=== PATIENT | female | born 1950 | race Caucasian/White ===

== ENCOUNTER 2022-01-28 17:49 | Observation (INO) | payer OTHER ==
--- OUTSIDE RECORDS SUMMARY | 2022-01-28 17:52 | XMS REPORT | Continuity of Care Document ---
:1950 Author Organization [facility] t Address [address] [place] [address] Care Team Providers Name Role Phone Guillaume Powell Attending Clinician Unavailable Guillaume Powell Admitting Clinician Unavailable UNDEFINED Admitting Clinician Unavailable Payers Payer Name Policy Type Policy Number Effective Date Expiration Date S ource Problems This patient has no known problems. Allergies, Adverse Reactions, Alerts Allergy Allergy Status Severity Reaction(s) Onset Inactive Treating Comm ents Source Name Type Date Date Clinician No Known DA Active U 2020-04 [facility] [place] [facility] No Known DA Active U 2020-04 [facility] [place] [facility] 00:[facility] No Known DA Active U [facility] 12-02 [place] [facility] 00:00: [facility] [address] [place] [address] No Known DA Active U [facility]02 [place] [facility] Medications This patient has no known medications. Procedures Procedure Date / Time Performed Performing Clinician [facility] e [id number] 2021-01-10 00:00:00 BURRO [facility] [id number] 2021-01-10 00:00:00 JAIRON [facility] Encounters Start End Encounter Admission Attending Care Care Encounter Source Date/Time Date/Time Type Type Clinicians Facility Department ID 2021-01-10 2021-01-11 Inpatient MICKEY Allen SURG [id number] 05 [facility] 05:27:00 12:03:00 Guillaume [facility] 2020-12-21 2020-12-21 Outpatient CHRISTINE Powell LABO [id number] [facility] 18:33:00 18:33:00 Guillaume 89 [facility] 2020-12-21 2020-12-21 Outpatient MICKEY Allen 3DAY [id number] [facility] 09:00:00 09:00:00 Guillaume 87 [facility] Results Test Description Test Time Test Comments Results Result Comments Source BASIC METABOLIC PANEL 2021-01-11 06:52:00 Test Item Value Reference Range Interpretation Comme nts SODIUM (test code = NA) 141 mmol/L 136-145 N POTASSIUM (test code = K) 4.4 mmol/L 3.5-5.1 N CHLORIDE (test code = CL) 105.0 mmol/L 98-107 N CARBON DIOXIDE (test code = 27.1 mmol/L 21-32 N CO2) GLUCOSE (test code = GLU) 93 mg/dL 70-110 N BLOOD UREA NITROGEN (test code 17 mg/dL 7-18 N = BUN) GLOMERULAR FILTRATION RATE 55.9 >60 U nit of measure: mL/min/1.73 (test code = GFR) [id number] Range:Healthy Adults >90 mL/m in/1.73 m2 For Chronic Kidney Disease: Stage II Mild D ecrease in GFR 60-90 Stage III Moderate Decrease in GFR 30-59 Stage IV Severe Decre ase in GFR 15-29 Stage V K idney Failure <15 CREATININE (test code = CREAT) 0.98 mg/dL 0.55-1.30 N CALCIUM (test code = CA) 9.0 mg/dL 8.2-10.1 N HGB [id number] 06:08:00 Test Item Value Reference Range Interpretation Comments HEMOGLOBIN (test code = HGB) 12.1 g/dL 12-16 N HEMATOCRIT (test code = HCT) 36.3 % 37-47 L SPECIMEN COMMENT: POD #1- XR KNEE 1 OR 2 V [id number] 12:11:00 [facility] 1950 Sex: F Patient Name: ANIKET YOU Unit No: [id number] EXAMS: CPT CODE: [id number] XR KNEE 1 OR 2 [place] [id number] IMAGES PROVIDED: 2 FINDINGS: Postoperative changes from right total knee arthoplasty demonstrated without evidence of immediate complication. No acute fracture is visualized. IMPRESSION: Postoperative exam as above. at 1211 Reported and signed by: Rod Salcedo M.D. CC: Guillaume Powell MD Technologist: MARYAM SIMPSON RT(R) Transcribed D/ (1211) [facility]: [facility] [address] [facility] PHYS: Guillaume Carpio MD : 1950 AGE: 70 SEX: F [place], [place] [address] LOC: [id number] A PHONE #: [phone] EXAM DATE: 01/10/2021 STATUS: ADM IN FAX #: [phone] RAD #: D/C DT PAGE 1 Signed Report Patient Name: ANIKET YOU Unit No: [id number] EXAMS: CPT CODE: [id number] XR KNEE 1 OR 2 V RT [id number] (Continued) Orig Print D/T: S: 01/11/2021 (0849)[facility] NAME: ANIKET YOU [address] [facility] PHYS: Guillaume Carpio MD : 1950 AGE: 70 SEX: F [place], [place] [address] LOC: [id number] PHONE #: [phone] EXAM DATE: 01/10/2021 STATUS: ADM IN FAX #: [phone] RAD #: D/C DT PAGE 2 Signed ReportCOMPREHENSIVE METABOLIC [id number] 13:18:00 Test Item Value Reference Range Interpretation Comments SODIUM (test code = 141 mmol/L 136-145 N NA) POTASSIUM (test code = 4.7 mmol/L 3.5-5.1 N K) CHLORIDE (test code = 105.0 mmol/L 98-107 N CL) CARBON DIOXIDE (test 27.9 mmol/L 21-32 N code = CO2) GLUCOSE (test code = 80 mg/dL 70-110 N GLU) BLOOD UREA NITROGEN 15 mg/dL 7-18 N (test code = BUN) GLOMERULAR FILTRATION 52.2 >60 Unit o f measure: RATE (test code = GFR) mL/mi n/1.73 [id number] Range:Healthy Adults >90 mL/min/1.73 m2 For Chronic Kidney Disease: Stage II Mild Decrease i n GFR 60-90 Stage III Moderate Decrea se in GFR 30-59 St age IV Severe Decre ase in GFR 15-29 St age V Kidney Failur e <15 CREATININE (test code 1.04 mg/dL 0.55-1.30 N = CREAT) TOTAL PROTEIN (test 6.8 g/dL 6.4-8.2 N code = PROT) ALBUMIN (test code = 3.8 g/dL 3.4-5.0 N ALB) GLOBULIN (test code = 3.0 g/dL 2.2-4.2 N GLOB) ALBUMIN/GLOBULIN RATIO 1.3 0.7-2.0 N (test code = A/G) CALCIUM (test code = 9.3 mg/dL 8.2-10.1 N CA) BILIRUBIN TOTAL (test 0.30 mg/dL 0.2-1.00 N code = BILT) SGOT/AST (test code = 14.0 U/L 15-37 L AST) SGPT/ALT (test code = 34.0 U/L 12-78 N Please note new ALT) normal range. ALKALINE PHOSPHATASE 67 U/L 46-116 N TOTAL (test code = ALKP) CBC W/AUTO [id number] 12:34:00 Test Item Value Reference Range Interpretation Comments WHITE BLOOD CELL (test code = WBC) 5.7 K/mm3 5.8-11.0 L RED BLOOD CELL (test code = RBC) 4.65 M/mm3 4.2-5.4 N HEMOGLOBIN (test code = HGB) 14.5 g/dL 12-16 N HEMATOCRIT (test code = HCT) 43.1 % 37-47 N MEAN CELL VOLUME (test code = MCV) 93 fL 80-98 N MEAN CELL HGB (test code = MCH) 31.2 pg 27-34 N MEAN CELL HGB CONCENTRATION (test 33.6 g/dL 30.8-34.1 N code = MCHC) RED CELL DISTRIBUTION WIDTH (test 13.3 % 11-16 N code = RDW) PLT (test code = PLT) 347 K/mm3 130-400 N MEAN PLATELET VOLUME (test code = 9.8 fL 8.9-12.1 N MPV) NEUTROPHIL % (test code = NT%) 45.5 % 45-70 N LYMPHOCYTE % (test code = LY%) 42.3 % 20-40 H MONOCYTE % (test code = MO%) 8.6 % 3-10 N EOSINOPHIL % (test code = EO%) 2.3 % 1-5 N BASOPHIL % (test code = BA%) 1.0 % 0.0-1.1 N NEUTROPHIL # (test code = NT#) 2.60 K/mm3 2.00-7.50 N LYMPHOCYTE # (test code = LY#) 2.42 K/mm3 1.50-4.00 N MONOCYTE # (test code = MO#) 0.49 K/mm3 0.2-0.8 N EOSINOPHIL # (test code = EO#) 0.13 K/mm3 0.04-0.4 N BASOPHIL # (test code = BA#) 0.06 K/mm3 0.02-0.10 N MANUAL DIFF REQUIRED (test code = NO MANUAL DIFF MDIFF) NUCLEATED RED BLOOD CELL (test 0 % 0-0 N code = NRBC)
[2022-01-28 20:48] LABS: Absolute Lymphocytes (CBC) 0.8 K/uL (0.7-4.9); MCV 95.5 fL (80-100); MPV 7.9 fL (7.6-11.3)
[2022-01-28 21:11] LABS: Albumin 3.6 g/dL (3.4-5.0); Bilirubin Total 0.5 mg/dL (0.2-1.0); Potassium 3.8 mmol/L (3.5-5.1); Protein, Total 7.2 g/dL (6.4-8.2)
[2022-01-28 21:26] LABS: Urine Blood Trace-intact (Negative); Urine Glucose Negative (Negative); Urine Protein Negative (Negative); Urine Specific Gravity 1.025 (1.005-1.030); Urine pH 5.5 (5.0-7.0)
[2022-01-28 21:42] LABS: Urine Bacteria <20 /HPF (<20); Urine Mucus Slight /HPF (None Seen); Urine RBC <5 /HPF (None Seen)
[2022-01-28] MEDS ORDERED: LACTULOSE 20 GM/30 ML UCUP ONE (23:59)
[2022-01-28] MEDS ORDERED: BISACODYL 10 MG RECTAL SUPP ONE (23:59)
[2022-01-29] MEDS ORDERED: MINERAL OIL ENEMA 135 ML BTL PR ONE (01:59)
--- NOTE | 2022-01-29 02:08 | EDPHYS ---
Physician Documentation [facility] Name: Kellen Johnson Age: 71 yrs Sex: Female : 1950 Arrival Date: 01/28/2022 Time: 17:52 Bed 4 Private MD: Reema Hinojosa C ED Physician Randy Mireles HPI: 01/28 19:55 This 71 yrs old Female presents to ER via Ambulatory with complaints of Constipation, cp Urinary Retention. 19:55 The patient presents to the emergency department with pain in the rectal area. cp 19:55 Associate signs and symptoms: Pertinent positives: constipation, urine retention, last cp BM 4-5 days ago, Pertinent negatives: abdominal pain, diarrhea, fever, lower GI bleeding. Historical: - Allergies: 18:04 No Known Allergies; ll1 - PMHx: 18:04 None; ll1 - PSHx: 18:04 R ankle ORIF; R total knee; banding hemmhroids; ll1 - Immunization history:: Client reports receiving the 2nd dose of the Covid vaccine. - Social history:: Smoking status: Patient denies any tobacco usage or history of. ROS: 20:00 Constitutional: Negative for body aches, chills, fever, poor PO intake. cp 20:00 Eyes: Negative for injury, pain, redness, and discharge. cp 20:00 ENT: Negative for drainage from ear(s), ear pain, sore throat, difficulty swallowing, difficulty handling secretions. 20:00 Cardiovascular: Negative for chest pain. 20:00 Respiratory: Negative for cough, shortness of breath, wheezing. 20:00 Abdomen/GI: Positive for constipation, rectal pain, Negative for abdominal pain, nausea, vomiting, and diarrhea. 20:00 Back: Negative for pain at rest, pain with movement. 20:00 : Positive for difficulty urinating. 20:00 Neuro: Negative for altered mental status, dizziness, headache, weakness. 20:00 All other systems are negative. Exam: 20:05 Constitutional: The patient appears in no acute distress, alert, awake, cp non-diaphoretic, non-toxic, well developed, well nourished, uncomfortable. 20:05 Head/Face: Normocephalic, atraumatic. cp 20:05 Eyes: Periorbital structures: appear normal, Conjunctiva: normal, no exudate, no injection, Sclera: no appreciated abnormality, Lids and lashes: appear normal, bilaterally. 20:05 ENT: External ear(s): are unremarkable, Nose: is normal, Mouth: Lips: moist, Oral mucosa: moist, Posterior pharynx: Airway: no evidence of obstruction, patent. 20:05 Chest/axilla: Inspection: normal. 20:05 Cardiovascular: Rate: normal, Rhythm: regular, Edema: is not appreciated. 20:05 Respiratory: the patient does not display signs of respiratory distress, Respirations: normal, no use of accessory muscles, no retractions, labored breathing, is not present, Breath sounds: are clear throughout, no decreased breath sounds, no stridor, no wheezing. 20:05 Abdomen/GI: Inspection: abdomen appears normal, Bowel sounds: active, all quadrants, Palpation: abdomen is soft and non-tender, in all quadrants. 20:05 Back: pain, is absent, ROM is normal. 01/29 01:30 : Rectal exam: Stool: brown, soft, moderate impaction noted. cp Vital Signs: 01/28 18:05 BP 144 / 83; Pulse 74; Resp 15; Temp 97.5; Pulse Ox 96% ; Weight 72.57 kg; Height 5 ft. ll1 7 in. (170.18 cm); Pain 6/10; 01/29 00:14 BP 125 / 66; Pulse 84; Resp 17; Pulse Ox 97% on R/A; ll3 01/28 18:05 Body Mass Index 25.06 (72.57 kg, 170.18 cm) ll1 MDM: 01/28 18:58 Patient medically screened. cp 20:00 Differential diagnosis: hemorrhoids, fecal impaction, constipation, bowel obstruction. cp 01/29 02:05 Data reviewed: vital signs, nurses notes, lab test result(s), radiologic studies, CT cp scan. 02:05 Counseling: I had a detailed discussion with the patient and/or guardian regarding: the cp historical points, exam findings, and any diagnostic results supporting the discharge/admit diagnosis, lab results, radiology results. Response to treatment: the patient's symptoms have mildly improved after treatment, small bowel movement observed, will admit for enemas and continued treatment. 01/28 19:49 Order name: CBC with Diff; Complete Time: 20:55 cp 10/30 20:55 Interpretation: Normal except: WBC 13.60; SARY% 88.9; LYM% 6.0; NEUT A 12.1. cp 01/28 19:49 Order name: CMP; Complete Time: 22:04 cp 01/28 19:49 Order name: Lipase; Complete Time: 22:04 cp 01/28 19:49 Order name: Urine Microscopic Only cp 01/28 21:27 Order name: Urine Dipstick-Ancillary; Complete Time: 22:04 EDMS 01/29 02:08 Order name: SARS RAPID ll3 01/29 02:22 Order name: Basic Metabolic Panel EDMS 01/29 02:22 Order name: Basic Metabolic Panel EDMS 01/29 02:22 Order name: CBC with Automated Diff EDMS 01/29 02:22 Order name: CBC with Automated Diff EDMS 01/29 02:22 Order name: Lipase EDMO 01/29 02:22 Order name: Lipase EDMO 01/29 02:22 Order name: Liver (Hepatic) Function EDMS 01/29 02:22 Order name: Liver (Hepatic) Function EDMO 01/28 19:49 Order name: Bladder Scanner: pre and post void; Complete Time: 23:55 cp 01/28 19:49 Order name: IV Saline Lock; Complete Time: 20:43 cp 01/28 19:49 Order name: Labs collected and sent; Complete Time: 20:43 cp 01/28 19:49 Order name: Urine Dipstick-Ancillary (obtain specimen); Complete Time: 23:55 cp 01/28 19:50 Order name: CT Abd/Pelvis - PO and IV Contrast 01/28 22:24 Order name: Garcia; Complete Time: 00:33 cp Administered Medications: 00:05 Drug: Lactulose 30 grams Volume: 45 ml; Route: PO; ke1 00:05 Drug: Dulcolax (bisacodyl) Suppository 10 mg Route: MD; ke1 02:10 Drug: Fleet Enema (sodium phosphate) 133 ml Route: MD; ke1 Disposition: 14:17 Co-signature as Attending Physician, Randy Mireles MD I agree with the assessment and kdr plan of care. Disposition Summary: 01/29/22 02:07 Hospitalization Ordered Hospitalization Status: Observation cp Provider: Reema Hinojosa cp Location: Telemetry/MedSurg (observation) cp Condition: Stable cp Problem: new cp Symptoms: have improved cp Bed/Room Type: Standard cp Room Assignment: 221(01/29/22 03:05) cg Diagnosis - Retention of urine, unspecified cp - Fecal impaction cp - Constipation cp Forms: - Medication Reconciliation Form cp - SBAR form cp Signatures: Dispatcher [employer] Randy Vides MD MD kdr Jareth Mchugh PA PA cp Mery Marcano RN RN cg Lewis, Lynsay, RN RN ll1 Surendra Garcia RN RN ke1 Corrections: (The following items were deleted from the chart) 03:05 02:07 cp cg
--- NOTE | 2022-01-29 02:08 | ER ---
Nurse's Notes [facility] Name: Kellen Johnson Age: 71 yrs Sex: Female : 1950 Arrival Date: 01/28/2022 Time: 17:52 Bed 4 Private MD: Reema Hinojosa C Diagnosis: Retention of urine, unspecified;Fecal impaction;Constipation Presentation: 01/28 18:05 Chief complaint: Patient states: Constipation for about 4-5 days. Unable to urinate now ll1 for 1.5 hours. Coronavirus screen: Vaccine status: Patient reports receiving the 2nd dose of the covid vaccine. Client denies travel out of the [place] in the last 14 days. At this time, the client does not indicate any symptoms associated with coronavirus-19. Ebola Screen: Patient denies travel to an Ebola-affected area in the 21 days before illness onset. Initial Sepsis Screen: Does the patient meet any 2 criteria? No. Patient's initial sepsis screen is negative. Does the patient have a suspected source of infection? Yes: Acute abdominal pain. Risk Assessment: Do you want to hurt yourself or someone else? Patient reports no desire to harm self or others. Onset of symptoms was January 24, 2022. 18:05 Method Of Arrival: Ambulatory ll1 18:05 Acuity: JAZLYN 3 ll1 Triage Assessment: 19:50 General: Appears in no apparent distress. Behavior is. ke1 19:50 Pain: Denies pain. ke1 Historical: - Allergies: 18:04 No Known Allergies; ll1 - PMHx: 18:04 None; ll1 - PSHx: 18:04 R ankle ORIF; R total knee; banding hemmhroids; ll1 - Immunization history:: Client reports receiving the 2nd dose of the Covid vaccine. - Social history:: Smoking status: Patient denies any tobacco usage or history of. Screenin:50 Abuse screen: Denies threats or abuse. Nutritional screening: No deficits noted. ke1 Tuberculosis screening: No symptoms or risk factors identified. Fall Risk None identified. Assessment: 19:50 GI: Bowel sounds diminished in right upper quadrant, left upper quadrant, right lower ke1 quadrant and left lower quadrant Abd is soft Abd is non tender X 4 quads. 22:26 Reassessment: Post void bladder scan 382 ml. ke1 01/29 00:39 Reassessment: Patient is alert, oriented x 3, equal unlabored respirations, skin ke1 warm/dry/pink. Bedside commode in place post ducolax and lactulose administration. 01:45 Reassessment: Assisted provider for digital impaction. ke1 01:55 Reassessment: BM X 1. ke1 03:50 Reassessment: Patient states feeling better. Patient states symptoms have improved. ke1 Vital Signs: 01/28 18:05 BP 144 / 83; Pulse 74; Resp 15; Temp 97.5; Pulse Ox 96% ; Weight 72.57 kg; Height 5 ft. ll1 7 in. (170.18 cm); Pain 6/10; 01/29 00:14 BP 125 / 66; Pulse 84; Resp 17; Pulse Ox 97% on R/A; ll3 01/28 18:05 Body Mass Index 25.06 (72.57 kg, 170.18 cm) ll1 ED Course: 01/28 17:52 Patient arrived in ED. am2 17:52 Reema Hinojosa MD is Private Physician. am2 18:08 Triage completed. ll1 18:50 Jareth Mchugh PA is PHCP. cp 18:50 Randy Mireles MD is Attending Physician. cp 19:50 Inserted saline lock: 20 gauge in left antecubital area, using aseptic technique. ke1 19:50 Arm band placed on. ke1 19:50 Bed in low position. Call light in reach. ke1 20:25 Surendra Garcia, RN is Primary Nurse. ke1 20:43 CBC with Diff Sent. ke1 20:43 CMP Sent. ke1 20:43 Lipase Sent. ke1 01/29 00:10 Garcia cath inserted, using sterile technique, 16 Fr., by ma, balloon inflated, returned ke1 600 ml. 01:41 CT Abd/Pelvis - PO and IV Contrast In Process Unspecified. EDMS 02:00 Served as a assistant to the director during rectal exam. ke1 02:06 Reema Hinojosa MD is Hospitalizing Provider. cp 02:15 SARS RAPID Sent. ke1 03:49 Patient admitted, IV remains in place. ke1 Administered Medications: 00:05 Drug: Lactulose 30 grams Volume: 45 ml; Route: PO; ke1 00:05 Drug: Dulcolax (bisacodyl) Suppository 10 mg Route: OR; ke1 02:10 Drug: Fleet Enema (sodium phosphate) 133 ml Route: OR; ke1 Medication: 03:49 VIS not applicable for this client. ke1 Outcome: 02:07 Decision to Hospitalize by Provider. cp 03:49 Admitted to Med/surg accompanied by tech. ke1 03:49 Condition: good 03:49 Instructed on the need for admit. 03:50 Patient left the ED. ke1 Signatures: Dispatcher [employer] EDMS Jareth Mchugh PA PA cp Moreno, Betty am2 Sam Michelle, RN RN ll1 Richard Galarza RN RN ll3 Surendra Garcia RN RN ke1 Corrections: (The following items were deleted from the chart) 00:36 10 18:15 General: Appears in no apparent distress. Behavior is ke1 [facility] 01/29 00:38 01/28 18:15 Abuse screen: Denies threats or abuse. 1 [facility] 01/29 00:38 01/28 18:15 Nutritional screening: No deficits noted. 1 [facility] 01/29 00:38 01/28 18:15 Tuberculosis screening: No symptoms or risk factors identified. 1 [facility] 01/29 00:38 01/28 18:15 Fall Risk None identified. 1 [facility]
[2022-01-29] MEDS ORDERED: ACETAMINOPHEN 500 MG TAB PO PRN (02:16)
[2022-01-29] MEDS ORDERED: ONDANSETRON 4 MG/2 ML VIAL IV PRN (02:16)
[2022-01-29] MEDS ORDERED: BISACODYL E.C. 5 MG TAB PO PRN (02:19)
[2022-01-29 02:49] LABS: SARS-CoV-2 Antigen Rapid Res Negative (Negative)
[2022-01-29] MEDS ORDERED: NA CHLORIDE 0.9% 1,000 ML IV SCH (03:00)
[2022-01-29 04:51] VITALS: BMI 25.0
[2022-01-29] MEDS ORDERED: MAGNESIUM HYDROXIDE 8% 30 ML PO ONE (08:08)
[2022-01-29 08:51] VITALS: BP 116/58; TEMP 97.6
[2022-01-29] MEDS ORDERED: LACTULOSE 20 GM/30 ML UCUP PO SCH (09:00)
[2022-01-29 09:50] VITALS: O2SAT 96
--- NOTE | 2022-01-30 20:14 | RAD REPORT ---
EXAM DESCRIPTION: CT - Abdomen Pelvis W Contrast - 01/28/2022 11:21 pm CLINICAL HISTORY: 71 years Female, constipation TECHNIQUE: Helical CT axial images are obtained from the lung bases to the pubic symphysis with IV c ontrast. OralAnd and a contrast was administered. Multiplanar reconstruction. This exam was performed according to our departmental dose-optimization program, which includes automated exposure control, adjustment of the mA and/or kV according to patient size and/or use of iterative reconstruction techn ique. COMPARISON: None. FINDINGS: LUNG BASES: No basilar consolidation or effusions. LIVER: Normal in size. Normal attenuation. Right hepatic lobe subjacent 1.5 cm well-circumscribed h ypodense lesions compatible with that of simple cysts, no further workup is warranted. No suspicious hepatic masses. HEPATOBILIARY: Normal-appearing gallbladder. No intra- or extrahepatic ductal dilatation. SPLEEN: Normal size. PANCREAS: Normal size and contour. No focal mass. ADRENAL GLANDS: Normal size. No adrenal masses. KIDNEYS: Bilateral kidneys are normal in size without obstructing calculi or hydronephrosis. No nep hrolithiasis. Small left lower pole parapelvic renal cysts, no further workup is warranted. No focal solid mass. BOWEL AND MESENTERY: Rectosigmoid fecal impaction with mild distention. Remainder of the colon is sto ol-filled without distention. No small or large bowel dilatation. No colonic diverticulosis. Normal appendix. No abnormal mesenteric lymphadenopathy. No free fluid or pneumoperitoneum. RETROPERITONEUM: Normal caliber abdominal aorta without aneurysm. No abnormal retroperitoneal lymphad enopathy. PELVIS: Urinary bladder is unremarkable. Uterus and adnexal regions are unremarkable. ABDOMINAL WALL: The abdominal wall is intact. BONES: Mild dextroscoliosis lumbar spine. No suspicious osseous lytic or blastic lesions seen. IMPRESSION: 1. No acute intra-abdominal or pelvic disease. 2. Rectosigmoid fecal impaction with mild distention. Remainder of the colon is stool-filled withou t distention. Findings compatible with constipation/obstipation. Electronically signed by: Mikael Pineda MD 01/29/2022 12:24 AM CDT Due to temporary technical issues with the PACS/Fluency reporting system, reports are being signed by the in house radiologists without review as a courtesy to insure prompt reporting. The interpreting radiologist is fully responsible for the content of the report.
--- NOTE | 2022-02-03 13:24 | SS ---
Date of Discharge: 01/29/2022 Chief Complaint: Abdominal pain and unable to void. History Of Present Illness: This is a 71-year-old female patient, who came into emergency room with complaints of constipation and did not have a bowel movement for about 4-5 days and started to have p ain in her lower abdomen in the rectum area and she was also not able to void and with these complain ts of inability to empty bladder and lower abdominal pain, she came into emergency room. After she w as evaluated in the ER, she was admitted to the hospital with constipation associated with urinary re tention. Garcia catheter was placed in the emergency room and when I saw her this morning, she report ed that she already had 2 bowel movements last night and her Garcia catheter is draining clear yellow urine. She is feeling much better. Denies any abdominal pain. No nausea. No vomiting. No fever. No chills. She denies any blood in stool either. Allergies: NO KNOWN ALLERGIES. Medications: She takes aspirin 81 mg daily, Caltrate plus D 1 tablet daily, vitamin D3 1000 units da xiang. Review of Systems: GI: As mentioned above. Genitourinary: As mentioned above. All other systems reviewed and negative. Past Medical History: Significant for hyperlipidemia and osteopenia. Past Surgical History: Breast biopsy, knee surgery, and ankle surgery. Family History: Father due to COVID-19 infection and mother had Alzheimer disease and hypertens ion. Social History: Negative for smoking and alcohol use. Physical Examination: Vital Signs: Temperature 97.6, pulse 63, respiratory rate 16, blood pressure 116/58, oxygen saturati on 96% on room air. Height 5 feet 7 inches, weight 159 pounds. General: Awake, alert, oriented, not in distress. HEENT: Head atraumatic, normocephalic. Conjunctivae nonerythematous. Sclerae white. Mouth, no thr ush or edema noted. Ears/Nose, no mass, lesion, discharge noted. Neck: Supple. No JVD, lymph nodes, bruit, thyromegaly noted. Lungs: Bilateral good equal air entry. Clear to auscultation. No rhonchi. No rales. Heart: Normal heart sounds, no murmur or gallop. Abdomen: Soft, bowel sounds normal. No guarding, rigidity, tenderness, mass, hepatosplenomegaly, dis tention, or bruit noted. Extremities: No leg edema. No calf tenderness. Skin: No rash, ulcer, cellulitis. Lymphatics: No lymph node enlargement in neck, supraclavicular, infraclavicular region. Neuro: No focal neurological deficit. Chest: Unremarkable. External Genitalia: Deferred. Rectal: Deferred. Laboratory Data: CAT scan of the abdomen shows no acute intraabdominal or pelvic finding. Rectosigm oid fecal impaction with mild distention. Remainder of the colon is stool filled without distention. White count 13.6, hemoglobin 14.4, platelets 216. Sodium 135, potassium 3.8, chloride 101, bicarb 28, BUN 17, creatinine 0.91, glucose 136. Liver function tests unremarkable. Lipase 109. Urinalysi s: Trace blood, otherwise negative. Hospital Course: After I saw the patient, Garcia catheter was removed and patient had 2 more bowel mo vements and she was feeling much better, had no complaints, emptying bladder. No complaints with any abdominal pain or rectal pain and she was discharged to go home in stable condition. I have advised her to drink 50-60 ounce of water daily and suggested her to take Metamucil fiber gummies, take 3 fi shell gummies daily and follow up at my office next week. Her last colonoscopy upon review of office arcelia corrales that was in 2017 and we will make a referral to have outpatient colonoscopy done after I see her at my office. Final Diagnoses: 1.Constipation. 2.Urinary retention. 3.Leukocytosis secondary to constipation. 4.Hyperlipidemia. 5.Hyponatremia. MAGDALENE/MODL Voice ID: [id number] Report ID: [id number]
== END 2022-01-29 12:10 | disposition home or self-care (01) ==
LOC: ER 17:49 → ERHOLD 01-29 02:26 → 2ND 01-29 03:12
PROVIDERS: ADMIT Internal Medicine; ATTEND Internal Medicine
DX: K59.00 Constipation, unspecified (principal); R33.9 Retention of urine, unspecified; E78.5 Hyperlipidemia, unspecified; E87.1 Hypo-osmolality and hyponatremia; M85.80 Other specified disorders of bone density and structure, unspecified site; D72.829 Elevated white blood cell count, unspecified; Z79.82 Long term (current) use of aspirin; Z82.49 Family history of ischemic heart disease and other diseases of the circulatory system; Z82.0 Family history of epilepsy and other diseases of the nervous system
CPT/HCPCS: 85025; 36415; 83690; 80053; 74177; 51702; 99285; 87811; Q9967; J7030; G0378 ×2; 81003; 81015

== ENCOUNTER 2022-03-03 11:16 | Emergency (ER) | payer OTHER ==
--- OUTSIDE RECORDS SUMMARY | 2022-03-03 11:18 | XMS REPORT | Continuity of Care Document ---
:1950 Author Organization [facility] t Address [address] [place] [address] Care Team Providers Name Role Phone Guillaume [...] Known DA Active U [facility]02 [place] [facility] 00:00: Stark s [address] [place] [address] No Known DA Active U [facility] 12[facility]02 [place] [facility] 00:00: [facility] Medications This patient has no known medications. Procedures Procedure Date / Time Performed Performing Clinician [facility] e [id number] 2021-01-10 00:00:00 BURRO [facility] [id number] 2021-01-10 00:00:00 JAIRON [facility] Encounters Start End Encounter Admission Attending Care Care Encounter Source Date/Time Date/Time Type Type Clinicians Facility Department ID 2021-01-10 2021-01-11 Inpatient MICKEY Allen SURG [id number] [facility] 05:27:00 12:03:00 Guillaume 54 [facility] 2020-12-21 2020-12-21 Outpatient CHRISTINE Powell LABO [id number] [facility] 18:33:00 18:33:00 Guillaume 89 [facility] 2020-12-21 2020-12-21 Outpatient MICKEY Allen 3DAY [id number] [facility] 09:00:00 09:00:00 Guillaume 87 [facility] Results Test Description [...] of measure: mL/min/1.73 (test code = GFR) [id number] Range:Healthy Adults >90 mL/m in/1.73 m2 For Chronic Kidney Disease: Stage II Mild D ecrease in GFR 60-90 Stage III Moderate Decrease in GFR 30-59 Stage IV Severe Decre ase in GFR 15-29 Stage V K idney Failure <15 CREATININE (test code = CREAT) 0.98 mg/dL 0.55-1.30 N CALCIUM (test code = CA) 9.0 mg/dL 8.2-10.1 N HGB [id number] 06:08:00 Test Item Value Reference Range Interpretation Comments HEMOGLOBIN (test code = HGB) 12.1 g/dL 12-16 N HEMATOCRIT (test code = HCT) 36.3 % 37-47 L SPECIMEN COMMENT: POD #1- XR KNEE 1 OR 2 V [id number] 12:11:00 [facility] 1950 Sex: F Patient Name: ANIKET YOU Unit No: [id number] EXAMS: CPT CODE: [id number] XR KNEE 1 OR 2 V RT [id number] IMAGES PROVIDED: 2 FINDINGS: Postoperative changes from right total knee arthoplasty demonstrated without evidence of immediate complication. No acute fracture is visualized. IMPRESSION: Postoperative exam as above. at 1211 Reported and signed by: Rod Salcedo M.D. CC: Guillaume Powell MD Technologist: MARYAM SIMPSON RT(R) Transcribed D/ (1211) [facility] [address] [facility] PHYS: Guilalume Carpio MD : 1950 AGE: 70 SEX: F [place], [place] [address] LOC: [id number].312 A PHONE #: [phone] EXAM DATE: 01/10/2021 STATUS: ADM IN FAX #: [phone] RAD #: D/C DT PAGE 1 Signed Report Patient Name: ANIKET YOU Unit No: [id number] EXAMS: CPT CODE: [id number] XR KNEE 1 OR 2 V RT [id number] (Continued) Orig Print D/T: S: 01/11/2021 (0849)[facility] NAME: ANIKET YOU [address] [facility] PHYS: Guillaume Carpio MD : 1950 AGE: 70 SEX: F [place], [place] [address] LOC: [id number] A PHONE #: [phone] EXAM DATE: 01/10/2021 STATUS: ADM IN FAX #: [phone] RAD #: D/C DT PAGE 2 Signed ReportCOMPREHENSIVE METABOLIC [id number] 13:18:00 Test Item Value Reference Range Interpretation [...] RATE (test code = GFR) mL/mi n/1.73 [id number] Range:Healthy Adults >90 mL/min/1.73 m2 For Chronic [...] TOTAL (test code = ALKP) CBC W/AUTO [id number] 12:34:00 Test Item Value Reference Range Interpretation [...]
--- NOTE | 2022-03-03 11:52 | EDPHYS ---
Physician Documentation [facility] Name: Kellen Johnson Age: 71 yrs Sex: Female : 1950 Arrival Date: 03/03/2022 Time: 11:18 Bed DIS5 Private MD: Reema Hinojosa C ED Physician Jareth Armas HPI: 03/03 11:50 This 71 yrs old Female presents to ER via Ambulatory with complaints of Sinus jmm Congestion. 11:50 The patient or guardian reports cough. Onset: The symptoms/episode began/occurred jmm gradually, 9 day(s) ago. Modifying factors: The symptoms are alleviated by nothing, the symptoms are aggravated by nothing. Associated signs and symptoms: Pertinent positives: sore throat, Pertinent negatives: fever. Historical: - Allergies: 11:46 No Known Allergies; kb3 - PMHx: 11:46 None; kb3 - PSHx: 11:46 banding hemmhroids; R ankle ORIF; R total knee; kb3 - Immunization history:: Adult Immunizations up to date, Client reports receiving the 2nd dose of the Covid vaccine, Last tetanus immunization: up to date. - Social history:: Smoking status: Patient denies any tobacco usage or history of. ROS: 11:50 Constitutional: Negative for fever, chills, and weight loss. jmm 11:50 ENT: Positive for sore throat. 11:50 Respiratory: Positive for cough. 11:50 All other systems are negative. Exam: 11:50 Constitutional: This is a well developed, well nourished patient who is awake, alert, jmm and in no acute distress. Head/Face: atraumatic. Eyes: EOMI, no conjunctival erythema appreciated 11:50 Chest/axilla: Normal chest wall appearance and motion. Cardiovascular: Regular rate and rhythm. No edema appreciated Respiratory: Normal respirations, no respiratory distress appreciated Abdomen/GI: Non distended Back: Normal ROM Skin: General appearance color normal MS/ Extremity: Moves all extremities, no obvious deformities appreciated, no edema noted to the lower extremities Neuro: Awake and alert Psych: Behavior is normal, Mood is normal, Patient is cooperative and pleasant 11:50 ENT: Posterior pharynx: erythema, that is moderate. Vital Signs: 11:44 BP 136 / 73; Pulse 53; Resp 20; Temp 97.9; Pulse Ox 98% ; Weight 72.57 kg; Height 5 ft. kb3 8 in. (172.72 cm); Pain 2/10; 11:44 Body Mass Index 24.33 (72.57 kg, 172.72 cm) kb3 MDM: 11:51 Data reviewed: vital signs, nurses notes. Counseling: I had a detailed discussion with kieran the patient and/or guardian regarding: the historical points, exam findings, and any diagnostic results supporting the discharge/admit diagnosis, the need for outpatient follow up, to return to the emergency department if symptoms worsen or persist or if there are any questions or concerns that arise at home. 11:51 Patient medically screened. [facility] Administered Medications: No medications were administered Disposition: 03/04 08:06 Co-signature as Attending Physician, Jareth Armas MD I agree with the assessment and steve plan of care. Disposition Summary: 03/03/22 11:51 Discharge Ordered Location: Home [facility] Condition: Stable [facility] Diagnosis - Acute pharyngitis, unspecified [facility] Followup: [facility] - With: Reema Hinojosa MD - When: 2 - 3 days - Reason: Recheck today's complaints, Continuance of care, Re-evaluation by your physician Discharge Instructions: - Discharge Summary Sheet [facility] - Pharyngitis [facility] Forms: - Medication Reconciliation Form [facility] - Thank You Letter [facility] - Antibiotic Education [facility] - Prescription Opioid Use [facility] Prescriptions: - cefdinir 300 mg Oral capsule - take 1 capsule by ORAL route every 12 hours; 20 capsule; Refills: 0, Product [facility] Selection Permitted Signatures: Jareth Armas MD MD cha Mickail, Joel, PA PA jmm Bradberry, Kelly, RN RN kb3
--- NOTE | 2022-03-03 11:52 | ER ---
Nurse's Notes [facility] Name: Kellen Johnson Age: 71 yrs Sex: Female : 1950 Arrival Date: 03/03/2022 Time: 11:18 Bed DIS5 Private MD: Reema Hinojosa C Diagnosis: Acute pharyngitis, unspecified Presentation: 03/03 11:44 Chief complaint: Patient states: Sore throat that began on x2 days and kb3 has now resolved. productive cough, congestion with thick yellowish-green nasal drainage. Denies fever. Coronavirus screen: Vaccine status: Patient reports receiving the 2nd dose of the covid vaccine. Client denies travel out of the [place] in the last 14 days. Ebola Screen: Patient negative for fever greater than or equal to 101.5 degrees Fahrenheit, and additional compatible Ebola Virus Disease symptoms Patient denies exposure to infectious person. Patient denies travel to an Ebola-affected area in the 21 days before illness onset. Initial Sepsis Screen: Does the patient meet any 2 criteria? No. Patient's initial sepsis screen is negative. Does the patient have a suspected source of infection? No. Patient's initial sepsis screen is negative. Risk Assessment: Do you want to hurt yourself or someone else? Patient reports no desire to harm self or others. Onset of symptoms was February 20, 2022. 11:44 Method Of Arrival: Ambulatory kb3 11:44 Acuity: JAZLYN 4 kb3 Triage Assessment: 11:46 General: Appears in no apparent distress. Behavior is calm, cooperative. kb3 11:46 Pain: Complains of pain in nose Pain does not radiate. Pain currently is 2 out of 10 on kb3 a pain scale. Quality of pain is described as pressure. Historical: - Allergies: 11:46 No Known Allergies; kb3 - PMHx: 11:46 None; kb3 - PSHx: 11:46 banding hemmhroids; R ankle ORIF; R total knee; kb3 - Immunization history:: Adult Immunizations up to date, Client reports receiving the 2nd dose of the Covid vaccine, Last tetanus immunization: up to date. - Social history:: Smoking status: Patient denies any tobacco usage or history of. Vital Signs: 11:44 BP 136 / 73; Pulse 53; Resp 20; Temp 97.9; Pulse Ox 98% ; Weight 72.57 kg; Height 5 ft. kb3 8 in. (172.72 cm); Pain 2/10; 11:44 Body Mass Index 24.33 (72.57 kg, 172.72 cm) kb3 ED Course: 11:18 Patient arrived in ED. mr 11:18 Reema Hinojosa MD is Private Physician. mr 11:18 [facility]tega [facility] 11:18 Jareth Armas MD is Attending Physician. jmm 11:46 Triage completed. kb3 11:46 Arm band placed on right wrist. kb3 11:51 Reema Hinojosa MD is Referral Physician. [place] Administered Medications: No medications were administered Outcome: 11:51 Discharge ordered by MD. [facility] 12:08 Patient left the ED. mm9 Signatures: Alfonso Ortega PA PA jmm Rivera, Mary Twyla Grimm, RN RN kb3 Patricia Blue mm9 Corrections: (The following items were deleted from the chart) 11:47 11:46 Pain: Denies pain. kb3 kb3
[2022-03-03] MEDS ORDERED: dexAMETHasone 10 MG/ML VIAL ONE (12:02)
[2022-03-03 12:12] VITALS: BP 136/73; TEMP 97.9; O2SAT 98
== END 2022-03-03 12:08 | disposition home or self-care (01) ==
LOC: ER 11:16
DX: J02.9 Acute pharyngitis, unspecified (principal)
CPT/HCPCS: 99281; J1100